=== PATIENT | female | born 1985 | race African-American/Black ===

== ENCOUNTER 2020-07-07 08:28 | Day surgery (SDC) | payer OTHER ==
[2020-06-30 13:18] VITALS: BMI 37.6
[2020-07-07] MEDS ORDERED: ROPIVACAINE HCL 0.5% 30ML VIAL ONE (09:17)
[2020-07-07] MEDS ORDERED: MIDAZOLAM HCL 2 MG/2 ML SINGLE DOSE VIAL ONE ×2 (09:17→10:14)
[2020-07-07] MEDS ORDERED: LIDOCAINE HCL/PF 2% SDV 5ML VIAL ONE (10:14)
[2020-07-07] MEDS ORDERED: ceFAZolin SODIUM 1 GM VIAL ONE (10:14)
[2020-07-07] MEDS ORDERED: PROPOFOL 20 ML ONE ×4 (10:14→12:53)
[2020-07-07] MEDS ORDERED: SODIUM CHLORIDE 0.9% P/F 10 ML VIAL IJ ONE ×2 (10:14→13:12)
[2020-07-07] MEDS ORDERED: EPHEDRINE SULFATE/0.9% NACL/PF 50 MG/10 ML SYRINGE NR ONE (10:58)
--- NOTE | 2020-07-07 11:59 | HP ---
History & Physical Update - History History: No Change - Physical Physical: No Change - Assessment Assessment: No Change - Plan Plan: No Change
[2020-07-07] MEDS ORDERED: ONDANSETRON 4 MG/2 ML VIAL ONE (13:09)
[2020-07-07] MEDS ORDERED: KETOROLAC TROMETHAMINE 30 MG/1 ML VIAL ONE (13:09)
[2020-07-07] MEDS ORDERED: oxyCODONE HCL 5 MG TABLET PO PRN ×2 (14:22)
[2020-07-07] MEDS ORDERED: ONDANSETRON 4 MG/2 ML VIAL IVPUSH PRN (14:22)
--- NOTE | 2020-07-07 14:22 | OP ---
Operative Note - Note: Operative Date: 07/07/20 Pre-Operative Diagnosis: Left shoulder impingement syndrome Operation: Left shoulder NEER decompression, acromioplasty, rotator cuff repair, theodore excision, Transection C-A ligament Post-Operative Diagnosis: Same as Pre-op Surgeon: Adalid Ordonez Driver Helper: Kenneth Alcaraz Anesthesiologist/RELAY OPERATOR: Selin Prieto Anesthesia: Regional, MAC Estimated Blood Loss (mls): 5 Operative Report Dictated: Yes
--- NOTE | 2020-07-07 14:24 | SURG ---
Surgery Civil Engineer'S Aide Note Civil Engineer'S Aide: Kenneth Alcaraz PA-C Date of Service: 07/07/20 Diagnosis: Left shoulder impingement syndrome Procedure: Left shoulder NEER decompression, acromioplasty, rotator cuff repair, theodore excision, Transection C-A ligament I was present for the entirety of the operative procedure. For further detail, please refer to operative report. Visit type - Case Type Case Type: Scheduled - Emergency Emergency Visit: No - New patient This patient is new to me today: Yes Date on this admission: 07/07/20 - Critical Care Critical Care patient: No
[2020-07-07] MEDS ORDERED: LACTATED RINGERS SOLUTION 1,000 ML IV SCH (14:30)
[2020-07-07] MEDS ORDERED: diazePAM 5 MG TABLET PO PRN (14:33)
[2020-07-07] MEDS ORDERED: oxyCODONE HCL 5 MG TABLET ONE (15:21)
[2020-07-07 16:55] VITALS: PULSE 78
[2020-07-07 17:01] VITALS: BP 128/71; TEMP 98
--- NOTE | 2020-07-08 17:31 | OP ---
DATE OF OPERATION: 07/07/2020 PREOPERATIVE DIAGNOSIS: Impingement syndrome left shoulder with possible rotator cuff tear. POSTOPERATIVE DIAGNOSIS: Impingement syndrome left shoulder with left double rotator cuff tears x2. ANESTHESIA: Conscious sedation with scalene block. SURGEON: Adalid Ordonez MD RESEARCH PROFESSOR: FREIDA Larkin OPERATION PERFORMED: 1. Left Delta excision arthroplasty clavicle. (84952) 2. Undercutting acromioplasty & transection of coracoacromial ligament. (37772) 3. Repair rotator cuff. (58788) ANTIBIOTICS GIVEN: Ancef 2 g, 1 g vancomycin preoperative. OPERATION DETAILS: Patient correctly identified and brought to the operating room. The left upper extremity was prepped and draped in the routine manner with betadine scrub solution, wiped off with alcohol, and DuraPrep applied. All bony points padded. Patient was placed in a beach chair seated position. The draping was from the root of the neck and the axilla was draped out of the operation field completely. In the lines of Yesi from the tip of the acromion to the tip of the coracoid process, the incision was made through the skin and subcutaneous tissue. Gelpi retractor was placed in the subcutaneous tissues to expose the clavicle. The clavicle superior surface identified using unipolar Bovie. The soft tissue was melted off of the actual distal end of the clavicle. Sharp Hohmann was placed around the back and the front of the distal end of the clavicle. Using an oscillating saw, a beveled incision of the distal 1-cm of clavicle performed. 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 At that point, about 0.5 cm of the deltoid was split at the level of the acromioclavicular joint. Using an [place] retractor this was placed in its plane between the muscle as well as the CA ligament. The CA ligament being verified with the use of a peanut sponge and the CA ligament was transected using a 15-blade knife. This gave easy access to the entire subacromial space. The undersurface of the acromion could be readily palpated, digging into the rotator cuff with the large osteophyte noted on the undersurface. A blunt Hohmann was utilized to push the head distally. A beveled cut of the acromion performed to excise the undersurface of the acromion and bring about complete freeing of the subacromial space. Once this had been performed, thickened bursa was noted. This was resected and gave us clear vision of the rotator cuff. Two 1-cm tears of the rotator cuff were identified. The edges were excised with a 15-blade and then reapproximated with number 1 Vicryl sutures. Watertight suture achieved. The wounds were thoroughly lavaged prior to closure. The deltoid was reapproximated and the soft tissues remaining for the capsule of the acromioclavicular joint imbricated into the joint in the form of true excision arthroplasty. Once this had been performed, the subcutaneous tissue was closed with number 2-0 Vicryl, skin with 3-0 Monocryl with Steri-Strips. A sling applied with the bolster in abduction. The bolster can be removed safely because of the watertight seal of the sutures. No complications. Operation tolerated well. MD MARY KATE [id number] MTDD
--- NOTE | 2020-07-09 16:54 | PATH ---
Surgical Pathology Report Patient Name: DAVID LEE [facility]. Rec. #: [id number] /Age/Gender: 1985 (Age: 35) / F Account: [id number] Location: [facility] Taken: 07/07/2020 Received: 07/07/2020 Reported: 07/09/2020 Physicians: Adalid Ordonez M.D. Specimen(s) Received A: DISTAL CLAVICLE RESECTION B: ACROMIOPLASTY Clinical History Left shoulder impingement syndrome Final Diagnosis A. DISTAL CLAVICLE, RESECTION: PORTION OF BONE WITH NO PATHOLOGIC FINDINGS. B. ACROMION, ACROMIOPLASTY: FRAGMENTS OF BONE, CARTILAGE, FIBROCOLLAGENOUS TISSUE AND SKELETAL MUSCLE. Electronically Signed Danielle Spivey M.D. Gross Description A. Received in formalin labeled "distal clavicle resection," is a 1.9 x 1.3 x 0.8 cm bronson-yellow portion of bone. Behavior Clinician sections are submitted in one cassette, following decalcification. B. Received in formalin labeled "acromioplasty," is a 2.8 x 1.6 x 0.8 cm aggregate of multiple bronson-yellow portions of bone with minimal attached soft tissue. Behavior Clinician sections are submitted in one cassette, following decalcification. 07/08/2020 [facility]07/08/2020
== END 2020-07-07 16:45 | disposition home or self-care (01) ==
LOC: FASU 08:28
PROVIDERS: ATTEND Orthopaedic Surgery Orthopaedic Surgery of the Spine
PROC: 0MN20ZZ Release Left Shoulder Bursa and Ligament, Open Approach (ICD-10-PCS; 2020-07-07)
PROC: 0LQ20ZZ Repair Left Shoulder Tendon, Open Approach (ICD-10-PCS; 2020-07-07)
PROC: 0PBB0ZZ Excision of Left Clavicle, Open Approach (ICD-10-PCS; principal; 2020-07-07 12:15)
DX: M75.42 Impingement syndrome of left shoulder (principal); M75.122 Complete rotator cuff tear or rupture of left shoulder, not specified as traumatic
CPT/HCPCS: 84703; 88304-TC; 88311-TC; 94760